=== PATIENT | male | born 1980 | race Caucasian/White ===

== ENCOUNTER 2017-10-28 03:02 | Inpatient (IN) | payer OTHER ==
[2017-10-28] VITALS (11 sets, daily range): BP systolic 108–139; BP diastolic 57–84; PULSE 96–115; RESP 14–29; TEMP 97.7–100.3; O2SAT 93–99
[~2017-10-28] VITALS: Ht 182.9 cm; Wt 79.6 kg
[2017-10-28] MEDS ORDERED: DIPHTH/TETANUS/ACEL PERTUSSIS (BOOSTER) 0.5 ML VIAL/PFS IM ONE (03:12)
[2017-10-28] MEDS ORDERED: ceFAZolin 2 GM PREMIX 50 ML ONE (03:13)
[2017-10-28 03:21] LABS: AUTOMATED NEUTROPHIL # 4.1 TH/MM3 (1.8-7.7); BASOPHIL # 0.1 TH/MM3 (0-0.2); BASOPHIL % 0.8 % (0.0-2.0); EOSINOPHIL # 0.1 TH/MM3 (0-0.4); EOSINOPHIL % 1.6 % (0.0-4.0); HEMATOCRIT 42.4 % (39.0-51.0); HEMOGLOBIN 14.6 GM/DL (13.0-17.0); LYMPH % 25.4 % (9.0-44.0); LYMPHOCYTE # 1.7 TH/MM3 (1.0-4.8); MEAN CELL VOLUME 92.3 FL (80.0-100.0); MEAN CORPUSCULAR HEMOGLOBIN 31.9 PG (27.0-34.0); MEAN CORPUSCULAR HGB CONC 34.5 % (32.0-36.0); MEAN PLATELET VOLUME 7.6 FL (7.0-11.0); MONO % 10.2 % (0.0-8.0); MONOCYTE # 0.7 TH/MM3 (0-0.9); PLATELET COUNT 261 TH/MM3 (150-450); RED BLOOD COUNT 4.59 MIL/MM3 (4.50-5.90); RED CELL DISTRIBUTION WIDTH 12.9 % (11.6-17.2); WHITE BLOOD COUNT 6.6 TH/MM3 (4.0-11.0)
[2017-10-28 03:30] LABS: PROTHROMBIN TIME - PATIENT 10.2 SEC (9.8-11.6)
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
[2017-10-28] MEDS ORDERED: IOHEXOL 350 MG/ML 10 ML VIAL (for RAD DIAG) IVCONTRAST ONE (03:43)
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
[2017-10-28] MEDS ORDERED: SODIUM CHLORIDE 0.9% FLUSH 10 ML FLUSH IV FLUSH PRN (03:45)
[2017-10-28] MEDS: SODIUM CHLOR 0.9% 1000 ML INJ 1,000 ML IV SCH ×3 (03:45→23:12)
[2017-10-28] MEDS ORDERED: CHLORHEXIDINE GLUCONATE 2 % 1 PACK (2 CLOTHS) TOP PRN (03:45)
[2017-10-28] MEDS ORDERED: MAGNESIUM HYDROXIDE SUSP 30 ML CUP PO PRN (03:45)
[2017-10-28] MEDS ORDERED: MISCELLANEOUS NURSING INFORMATION XX SCH (03:45)
[2017-10-28] MEDS ORDERED: ACETAMINOPHEN/HYDROcodone 325 MG/5 MG TAB PO PRN (03:45)
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
[2017-10-28] MEDS: CHLORHEXIDINE GLUCONATE 2 % 1 PACK (2 CLOTHS) TOP SCH (04:00)
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
[2017-10-28] MEDS: MORPHINE SULFATE 2 MG/ML INJ IV PUSH PRN ×3 (04:46→23:10)
[2017-10-28] MEDS: ONDANSETRON HCL 4 MG/2 ML VIAL IV PUSH PRN ×3 (06:30→23:10)
--- NOTE | 2017-10-28 08:30 | RADRPT ---
EXAM DATE/TIME: 10/28/2017 08:05 [place] COMPARISON: CT BRAIN W/O CONTRAST, October 28, 2017, 3:16. INDICATIONS : Traumatic intracranial hemorrhage. RADIATION DOSE: 42.46 CTDIvol (mGy) MEDICAL HISTORY : Head injury. SURGICAL HISTORY : None. ENCOUNTER: Subsequent ACUITY: 2 days PAIN SCALE: 4/10 LOCATION: Bilateral cranial TECHNIQUE: Multiple contiguous axial images were obtained of the head. Using automated exposure control and adj ustment of the mA and/or kV according to patient size, radiation dose was kept as low as reasonably a chievable to obtain optimal diagnostic quality images. DICOM format image data is available electro nically for review and comparison. FINDINGS: CEREBRUM: There is a 6 mm small possible epidural in the right occipital region unchanged from the previous taurus dy. As the time subarachnoid hemorrhage in the right frontal lobe and temporal tip. The ventricles ar e normal for age. No evidence of midline shift, mass lesion, or acute infarction. No extra-axial fl uid collections are seen. POSTERIOR FOSSA: The cerebellum and brainstem are intact. The 4th ventricle is midline. The cerebellopontine angle i s unremarkable. EXTRACRANIAL: The visualized portion of the orbits is intact. SKULL: The calvaria is intact. There was concern about a parietal fracture but we performed sagittal reforma ts and I cannot confirm any obvious fracture. No evidence of skull fracture. CONCLUSION: Persistent extra-axial fluid collection in the right occipital region possible epidural measuring 6 m m across unchanged from the previous study. I do not see an adjacent fracture of the reformatted imag es. Small amounts of subarachnoid hemorrhage in the right frontal region and temporal tip also unchan ged. No new hemorrhage is noted. Nic Dutta MD on October 28, 2017 at 8:26 Board Certified Radiologist. This report was verified electronically.
[2017-10-28] MEDS: DOCUSATE SODIUM 100 MG CAP PO SCH ×2 (10:34→19:59)
[2017-10-28] MEDS: ACETAMINOPHEN/HYDROcodone 325 MG/5 MG TAB PO PRN ×2 (10:52→19:59)
[2017-10-28] MEDS ORDERED: DOCU1CAP39 PO (12:16)
[2017-10-28] MEDS ORDERED: MAGN30S PO (12:16)
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
[2017-10-29] VITALS (12 sets, daily range): BP systolic 110–161; BP diastolic 62–86; PULSE 76–114; RESP 14–19; TEMP 97.8–99.1; O2SAT 94–98
[2017-10-29] MEDS: CHLORHEXIDINE GLUCONATE 2 % 1 PACK (2 CLOTHS) TOP SCH ×2 (04:00→20:53)
[2017-10-29] MEDS: MORPHINE SULFATE 2 MG/ML INJ IV PUSH PRN ×2 (04:52→19:04)
[2017-10-29 04:53] LABS: AUTOMATED NEUTROPHIL # 6.9 TH/MM3 (1.8-7.7); BASOPHIL % 0.4 % (0.0-2.0); EOSINOPHIL % 0.5 % (0.0-4.0); HEMATOCRIT 42.3 % (39.0-51.0); HEMOGLOBIN 14.8 GM/DL (13.0-17.0); LYMPH % 14.1 % (9.0-44.0); LYMPHOCYTE # 1.4 TH/MM3 (1.0-4.8); MEAN CELL VOLUME 93.1 FL (80.0-100.0); MEAN CORPUSCULAR HEMOGLOBIN 32.5 PG (27.0-34.0); MEAN CORPUSCULAR HGB CONC 34.9 % (32.0-36.0); MEAN PLATELET VOLUME 7.9 FL (7.0-11.0); MONO % 15.9 % (0.0-8.0); MONOCYTE # 1.6 TH/MM3 (0-0.9); NEUT % 69.1 % (16.0-70.0); PLATELET COUNT 266 TH/MM3 (150-450); RED BLOOD COUNT 4.54 MIL/MM3 (4.50-5.90); RED CELL DISTRIBUTION WIDTH 12.7 % (11.6-17.2); WHITE BLOOD COUNT 9.9 TH/MM3 (4.0-11.0)
[2017-10-29] MEDS: ONDANSETRON HCL 4 MG/2 ML VIAL IV PUSH PRN ×2 (04:53→16:19)
[2017-10-29 05:30] LABS: BICARBONATE 29.2 MEQ/L (21.0-32.0); CALCIUM 8.3 MG/DL (8.5-10.1); CREATININE 1.04 MG/DL (0.60-1.30)
[2017-10-29] MEDS: SODIUM CHLOR 0.9% 1000 ML INJ 1,000 ML IV SCH ×2 (06:16→13:05)
[2017-10-29] MEDS: DOCUSATE SODIUM 100 MG CAP PO SCH ×2 (09:00→20:52)
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
[2017-10-29] MEDS: SUMAtriptan SUCCINATE 25 MG TAB PO SCH ×3 (12:29→20:53)
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
[2017-10-29] MEDS ORDERED: MELATONIN 5 MG TAB PO PRN (21:00)
[2017-10-30] VITALS (9 sets, daily range): BP systolic 120–136; BP diastolic 64–80; PULSE 67–98; RESP 14–18; TEMP 97.8–98.3; O2SAT 94–97
[2017-10-30] MEDS: MORPHINE SULFATE 2 MG/ML INJ IV PUSH PRN ×6 (02:19→23:08)
[2017-10-30] MEDS: DOCUSATE SODIUM 100 MG CAP PO SCH ×2 (07:56→19:51)
[2017-10-30] MEDS: SUMAtriptan SUCCINATE 25 MG TAB PO SCH ×2 (07:56→20:19)
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
[2017-10-30] MEDS: ACETAMINOPHEN/HYDROcodone 325 MG/5 MG TAB PO PRN ×3 (09:26→20:48)
[2017-10-30] MEDS: ONDANSETRON HCL 4 MG/2 ML VIAL IV PUSH PRN ×3 (09:26→20:20)
[2017-10-30] MEDS: levETIRAcetam 500 MG TAB PO SCH ×2 (10:00→20:20)
[2017-10-30] MEDS ORDERED: DEXAMETHASONE SOD PHOS 4 MG/ML VIAL IV PUSH ONE (10:00)
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
--- NOTE | 2017-10-30 16:58 | RADRPT ---
EXAM DATE/TIME: 10/30/2017 16:18 [place] COMPARISON: CT BRAIN W/O CONTRAST, October 28, 2017, 8:05. INDICATIONS : Follow up traumatic brain injury, dizzy RADIATION DOSE: 45.46 CTDIvol (mGy) MEDICAL HISTORY : Cardiovascular disease. SURGICAL HISTORY : None. ENCOUNTER: Initial ACUITY: 1 day PAIN SCALE: 0/10 LOCATION: cranial TECHNIQUE: Multiple contiguous axial images were obtained of the head. Using automated exposure control and adj ustment of the mA and/or kV according to patient size, radiation dose was kept as low as reasonably a chievable to obtain optimal diagnostic quality images. DICOM format image data is available electro nically for review and comparison. FINDINGS: The examination is stable from the prior study. Again seen is an extra-axial hematoma either related to an epidural or subdural hematoma involving the occipital lobe on the right. It is stable in size i n the prior study. It is shown a slight interval decrease in density consistent with maturation. The subarachnoid hemorrhage previously seen is not readily evident on the current study. The brain parenc hyma shows normal attenuation. Ventricles are normal in size. Paranasal sinuses and mastoid air cells are clear. No definitive skull fracture observed. CONCLUSION: 1. Stable either epidural or subdural hematoma overlying the right occipital lobe. No new source of h emorrhage seen. 2. Previously seen small volume subarachnoid hemorrhage no longer evident. Sanjay Clark Jr., MD on October 30, 2017 at 16:52 Board Certified Radiologist. This report was verified electronically.
[2017-10-31] VITALS: BP 129/69; PULSE 80; RESP 18; TEMP 96.7; O2SAT 96
[2017-10-31] MEDS: CHLORHEXIDINE GLUCONATE 2 % 1 PACK (2 CLOTHS) TOP SCH (03:12)
[2017-10-31 04:49] LABS: BASOPHIL # 0.1 TH/MM3 (0-0.2); BASOPHIL % 0.6 % (0.0-2.0); EOSINOPHIL % 0.2 % (0.0-4.0); HEMATOCRIT 45.7 % (39.0-51.0); LYMPH % 11.5 % (9.0-44.0); LYMPHOCYTE # 1.2 TH/MM3 (1.0-4.8); MEAN CELL VOLUME 92.6 FL (80.0-100.0); MEAN CORPUSCULAR HEMOGLOBIN 32.3 PG (27.0-34.0); MEAN CORPUSCULAR HGB CONC 34.9 % (32.0-36.0); MEAN PLATELET VOLUME 7.6 FL (7.0-11.0); MONO % 11.5 % (0.0-8.0); MONOCYTE # 1.2 TH/MM3 (0-0.9); NEUT % 76.2 % (16.0-70.0); PLATELET COUNT 307 TH/MM3 (150-450); RED BLOOD COUNT 4.94 MIL/MM3 (4.50-5.90); RED CELL DISTRIBUTION WIDTH 12.7 % (11.6-17.2); WHITE BLOOD COUNT 10.5 TH/MM3 (4.0-11.0)
[2017-10-31 05:24] LABS: ALBUMIN 3.2 GM/DL (3.4-5.0); ALKALINE PHOSPHATASE 88 U/L (45-117); ALT (GPT) 28 U/L (12-78); AST (GOT) 35 U/L (15-37); BICARBONATE 29.4 MEQ/L (21.0-32.0); BLOOD UREA NITROGEN 8 MG/DL (7-18); CALCIUM 9.3 MG/DL (8.5-10.1); CHLORIDE 103 MEQ/L (98-107); GLOMERULAR FILTRATION RATE 68 ML/MIN (>89); GLUCOSE,RANDOM 110 MG/DL (74-106); SODIUM (NA) 141 MEQ/L (136-145); TOTAL BILIRUBIN ADULT 0.3 MG/DL (0.2-1.0)
[2017-10-31] MEDS ORDERED: HYDR-3516 PO (06:13)
[2017-10-31] MEDS ORDERED: ZOFR4TAB3 SL (06:13)
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
[2017-10-31 08:00] VITALS: BP 129/78; PULSE 66; RESP 20; TEMP 97.6; O2SAT 98
[2017-10-31] MEDS: levETIRAcetam 500 MG TAB PO SCH (08:59)
[2017-10-31] MEDS: DOCUSATE SODIUM 100 MG CAP PO SCH (09:00)
[2017-10-31] MEDS: ONDANSETRON HCL 4 MG/2 ML VIAL IV PUSH PRN ×2 (09:00→09:01)
[2017-10-31] MEDS: SUMAtriptan SUCCINATE 25 MG TAB PO SCH (09:00)
[2017-10-31] MEDS: ACETAMINOPHEN/HYDROcodone 325 MG/5 MG TAB PO PRN ×2 (09:01→13:00)
[2017-10-31 12:00] VITALS: BP 129/69; PULSE 78; RESP 20; TEMP 97.4; O2SAT 96
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
[2017-10-31] MEDS ORDERED: LEVE500 PO (14:21)
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
== END 2017-10-31 16:40 | disposition home or self-care (01) | DRG 965 ==
LOC: NEPI 03:02 → NEDA 03:46 → EDBD 03:46 → N03A 03:49 → N07B 10-30 23:49
PROVIDERS: ADMIT Surgery; ATTEND Surgery
DX: S06.5X9A Traumatic subdural hemorrhage with loss of consciousness of unspecified duration, initial encounter (principal); S36.112A Contusion of liver, initial encounter; S06.6X9A Traumatic subarachnoid hemorrhage with loss of consciousness of unspecified duration, initial encounter; S06.4X9A Epidural hemorrhage with loss of consciousness of unspecified duration, initial encounter; S02.0XXA Fracture of vault of skull, initial encounter for closed fracture; S81.812A Laceration without foreign body, left lower leg, initial encounter; R40.2412 Glasgow coma scale score 13-15, at arrival to emergency department; G47.9 Sleep disorder, unspecified; Y90.6 Blood alcohol level of 120-199 mg/100 ml; M54.5 Low back pain; M79.652 Pain in left thigh; F17.200 Nicotine dependence, unspecified, uncomplicated; Y92.410 Unspecified street and highway as the place of occurrence of the external cause; V28.4XXA Motorcycle driver injured in noncollision transport accident in traffic accident, initial encounter; Z23 Encounter for immunization
CPT/HCPCS: 70450; 71045; 71260; 72125; 72129; 72132; 72170; 73590; 74177; 80048; 80053; 80307; 85025; 85610; 85730; 86850; 86900; 86901; 87641; 90471; 90715; 94150; 96374; 99291; G0390; J0690; J1100; J2270; J2405; J7030; Q9967